=== PATIENT | female | born 2000 | race Caucasian/White ===

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

== ENCOUNTER 2022-05-21 10:46 | Emergency (ER) | payer OTHER, SELFPAY ==
[2022-05-21 10:47] VITALS: BP 138/77; PULSE 80; RESP 16; TEMP 36.6; O2SAT 98; BMI 20.9
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
--- NOTE | 2022-05-21 11:16 | NURSING ---
NO OLD EKGS
[2022-05-21 11:30] VITALS: PULSE 77; RESP 16
[2022-05-21 11:39] LABS: Absolute Neutrophil Count 7.5 X10^3/uL (2.0-7.7); Basophil# 0.02 X10^3/uL; Basophil% 0.2 % (0-1); Eosinophil# 0.24 X10^3/uL; Eosinophils% 2.3 % (0-5); Hemoglobin 12.9 g/dL (12.0-15.0); Lymphocyte % 19.7 % (19-41); Mean Corp Hgb Conc 32.3 g/dL (32-36); Mean Corpuscular Hgb 28.4 pg (27.0-32.0); Mean Corpuscular Volume 87.9 fL (81-99); Mean Platelet Vol. 9.2 fl (6.2-12.0); Monocyte# 0.76 X10^3/uL; Monocyte% 7.1 % (0-10); NRBC Flagged by Analyzer 0 % (0-5); Neutrophil % 70.3 % (47-70); Platelet Count 271 K/mm3 (150-450); RBC Distribution Width CV 12.1 % (11.6-14.6); RBC Distribution Width SD 39.1 fl (35.1-43.9); Red Blood Count 4.55 M/mm3 (4.2-5.4); White Blood Count 10.7 K/mm3 (4.4-11.0)
[2022-05-21 11:52] LABS: Internal QC Validated? YES +Cl - CLEAR BKGD; Pregnancy, Serum, hCG Quali. NEGATIVE Negative
[2022-05-21 11:55] LABS: AST(SGOT) 16 U/L (15-37); Alanine Aminotransfer ALT/SGPT 25 U/L (13-56); Albumin, Serum 3.5 g/dL (3.2-5.0); Alkaline Phosphatase 75 U/L (45-117); Anion Gap 7 (5-15); BUN 11 mg/dL (7-18); BUN/Creat Ratio 16.6 RATIO (10-20); Bilirubin, Direct < 0.05 mg/dL (0.00-0.30); Chloride 104 mmol/L (98-107); Creatinine, Serum 0.66 mg/dL (0.55-1.02); EST Glomerular Filtration Rate 118 mL/min (>60); Est Glom Filt Rate - Afr Amer 143 mL/min (>60); Estimated Creatinine Clearance 124.46 ml/min; Globulin 4.1 g/dL (2.2-4.2); Glucose 112 mg/dL (74-106); Potassium 3.6 mmol/L (3.5-5.1); Protein, Total 7.6 g/dL (6.4-8.2); Sodium Level 138 mmol/L (136-145)
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
[2022-05-21 12:26] LABS: Bacteria 0 SEEN /hpf (None Seen); Mucous, Urine 0 SEEN /hpf (<or=2+); Red Blood Cells-Urine 0 SEEN /hpf (0-5); White Blood Cells 0 SEEN /hpf (0-5)
[2022-05-21 12:27] LABS: Color, Urine Yellow (Yellow); Glucose, Dipstick Normal (Normal); Nitrite-Dipstick Negative (Negative); Occult Blood-Urine Negative /ul (Negative); Protein-Dipstick Negative (Negative); Specific Gravity, Urine 1.015 (1.002-1.030); Urine Bilirubin Dipstick Negative (Negative); Urine Clarity Clear (Clear); Urine Urobilinogen Normal (Normal); Urine pH 6.5 (5.0 - 8.0)
[2022-05-21 12:36] LABS: Ketone-Dipstick 5 mg/dl (Negative); Leukocyte Esterase-Dipstick Negative /ul (Negative)
[2022-05-21 12:45] LABS: Squamous Epithelial Cells - UA 5-10 SEEN /hpf (5-10)
[2022-05-21 12:48] VITALS: PULSE 70; RESP 16; O2SAT 99
== END 2022-05-21 12:48 | disposition home or self-care (01) ==
PROVIDERS: Emergency Provider Emergency Medicine; Visit Provider Emergency Medicine
DX: S70.311A Abrasion, right thigh, initial encounter (principal); R10.2 Pelvic and perineal pain; R10.813 Right lower quadrant abdominal tenderness; Y92.410 Unspecified street and highway as the place of occurrence of the external cause; V49.40XA Driver injured in collision with unspecified motor vehicles in traffic accident, initial encounter; F95.2 Tourette's disorder
CPT/HCPCS: 74177; 80048; 80076; 81001; 84703; 85025; 93005; 99283; Q9967; A4216

== ENCOUNTER 2022-06-12 09:13 | Emergency (ER) | payer OTHER, SELFPAY ==
[2022-06-12 09:14] VITALS: BP 147/95; PULSE 80; RESP 17; TEMP 36.2; O2SAT 97
--- NOTE | 2022-06-12 09:41 | EX.ED.DYSGE1 ---
HPI History of Present Illness Chief Complaint: Flank Pain Detail of Chief Complaint: Left flank pain that started yesterday Informant: patient Narrative Narrative: Patient presents to the emergency department complaint of left flank pain that started yesterday. Patient states the pain became more severe today. Patient initially thought she was constipated so she had a bowel movement this morning but did not relieve the pain. Patient denies dysuria. She denies frequency. She denies hematuria. She is never had pain like this before. Patient denies any fevers. Her last menstrual period was a week and a half ago. She is never had pain like this before. Patient states currently pain is a 7 out of 10. Patient has had nausea but no vomiting. Prior similar symptoms: No PFSH PFSH Medical History Anxiety Depression Tourette's disorder Home Medications polyethylene glycol 3350 17 gram oral powder packet 17 g PO DAILY #30 packets 09/30/18 [Rx Last Taken Unknown] sulfamethoxazole 800 mg-trimethoprim 160 mg tablet 1 tab PO BID 09/30/18 [History Last Taken Unknown] hydrocodone-acetaminophen 5-325mg 5mg-325mg 1 tab PO Q4H PRN PRN Pain 3 days #14 TABLETS 06/12/22 [Rx Last Taken Unknown] naproxen 500 mg tablet 500 mg PO BID #14 tabs 06/12/22 [Rx Last Taken Unknown] sulfamethoxazole 800 mg-trimethoprim 160 mg tablet 1 tab PO BID #6 TABLETS 06/12/22 [Rx Last Taken Unknown] Allergy/AdvReac Type Severity Reaction Status Date / Time No Known Allergies Allergy Verified 09/30/18 19:16 Social History (Updated 05/21/22 @ 12:[address] Issac Varma MD) household members: family Smoking Status: Never smoker alcohol intake: current alcohol intake frequency: holidays/special occasions only substance use type: does not use ROS ROS ED Review of Systems ROS Unobtainable: other Constitutional Constitutional ED: Reports lethargy; Denies chills, fever(s), sweats or weight loss Eyes Eyes: Denies blurry vision, change in vision or diplopia ENT ENT ED: Denies rhinorrhea or sore throat Cardiovascular Cardiovascular: Reports racing heartbeat; Denies chest pain, orthopnea or palpitations Respiratory/Chest Respiratory/Chest: Denies cough, dyspnea, dyspnea on exertion, orthopnea or sputum Gastrointestinal Gastrointestinal: Reports abdominal pain and nausea; Denies diarrhea or vomiting Genitourinary Genitourinary ED: Denies dysuria, hematuria or urinary frequency Musculoskeletal Musculoskeletal: Reports back pain; Denies arthralgias, myalgias or neck pain Integumentary Denies abscess, Abrasions or rash Neurologic Neurologic: Denies headache(s) or weakness Psychiatric Psychiatric: Denies anxiety, depression or suicidal thoughts Endocrine Endocrinology: Denies polydipsia, polyphagia or polyuria Hematologic/Lymphatic Hematologic/Lymphatic: Denies easy bleeding, easy bruising or lymphadenopathy Allergic/Immunologic Allergic/Immunologic ED: Denies mouth swelling, tongue swelling or urticaria EXAM Physical Exam Const Vital Signs: 06/12/22 09:14 Temperature 97.2 F L Temperature Source Temporal Pulse Rate 80 Respiratory Rate 17 Blood Pressure 147/95 H Blood Pressure Mean 112 Pulse Ox 97 Oxygen Delivery Method Room Air Positive well nourished and well developed General Appearance ED: well developed and NAD HEENT Reports TM's clear and moist mucous membranes normocephalic and atraumatic; Negative for trauma or tenderness Tympanic Membrane ED: Yes TM's clear Eyes PERRL and EOMs intact bilaterally General Eye ED: Negative for pale conjunctiva or scleral icterus Neck no lymphadenopathy, supple and no JVD General: Negative for tenderness Chest Wall inspection of chest normal and palpation of chest normal Chest: Negative for tenderness Resp normal respiratory effort and clear to auscultation bilaterally Effort and Inspection: Negative for respiratory distress or pain with movement Auscultation: Negative for rhonchi, wheezes or diminished lung sounds Cardio regular rate, regular rhythm, S1 normal heart sound, S2 normal heart sound and no murmurs Peripheral Pulses: pulses 2+ throughout GI normal to inspection, nondistended, normoactive bowel sounds, soft to palpation, non-distended and no masses GI Narrative: Tender to palpation over the suprapubic region as well as the left lower quadrant some mild guarding. There is no rebound, rigidity, or peritoneal signs. Back/Spine no thoracic nor lumbar tenderness Back/Spine Narrative: Tenderness over the left CVA Extremity normal to inspection General Extremety ED: Negative for edema General Extremity: Negative for edema Neuro oriented x3, CN's II-XII intact bilaterally, no sensory deficits noted and gait normal Sensorium / Orientation: awake, alert, oriented to person, oriented to place and oriented to time Motor Exam: strength 5/5 throughout and strength abnormal Psych mental status grossly normal Skin no rashes or lesions noted and no wounds MDM MDM MDM Narrative Medical decision making narrative: Established on arrival. Patient was medicated with morphine and Toradol and Zofran. Initially she refused the Toradol but states that the pain started come back a little bit so she would not want to Toradol. Patient lab work-up was normal. hCG was negative. Urinalysis did show some signs of infection with white cells as well as bacteria and positive nitrites. On CT she is noted to have a 2.5 mm stone near the left UVJ with hydro-. At this point patient will be started on Bactrim and given a prescription for Naprosyn and [place]. She is given urine strainers. She is given referral to urology. Based on the size of the stone I feel she should likely be able to pass this. Patient advised return if worsening pain, fever, vomiting, or condition should worsen anyway. Lab Data Attestation: I reviewed the patient's lab results. Labs: Laboratory Results - last 24 hr 06/12/22 06/12/22 06/12/22 09:27 09:27 09:27 WBC 8.4 RBC 4.88 Hgb 13.8 Hct 42.2 MCV 86.5 MCH 28.3 MCHC 32.7 RDW Std Deviation 38.2 RDW Coeff of [place] 12.1 Plt Count 342 MPV 9.3 Immature Gran % (Auto) 0.200 Neut % (Auto) 64.9 Lymph % (Auto) 24.4 [place] % (Auto) 7.0 Eos % (Auto) 3.1 Baso % (Auto) 0.4 Absolute Neuts (auto) 5.4 Absolute Lymphs (auto) 2.04 Nucleated RBC % 0 Sodium 140 Potassium 3.6 Chloride 107 Carbon Dioxide 27.0 Anion Gap 6 BUN 14 Creatinine 0.79 Estim Creat Clear Calc 4.30 Est GFR (MDRD) Af Amer 116 Est GFR (MDRD) Non-Af 96 BUN/Creatinine Ratio 17.7 Glucose 107 H Calcium 9.3 Serum , Qual NEGATIVE Urine Color Urine Clarity Urine pH Ur Specific [place] Urine Protein Urine Glucose (UA) Urine Ketones Urine Occult Blood Urine Nitrite Urine Bilirubin Urine Urobilinogen Ur Leukocyte Esterase Urine RBC Urine WBC Ur Squamous Epith Cells Urine Bacteria Urine Mucus 06/12/22 10:00 WBC RBC Hgb Hct MCV MCH MCHC RDW Std Deviation RDW Coeff of [place] Plt Count MPV Immature Gran % (Auto) Neut % (Auto) Lymph % (Auto) [place] % (Auto) Eos % (Auto) Baso % (Auto) Absolute Neuts (auto) Absolute Lymphs (auto) Nucleated RBC % Sodium Potassium Chloride Carbon Dioxide Anion Gap BUN Creatinine Estim Creat Clear Calc Est GFR (MDRD) Af Amer Est GFR (MDRD) Non-Af BUN/Creatinine Ratio Glucose Calcium Serum , Qual Urine Color Yellow Urine Clarity Clear Urine pH 8.0 Ur Specific [place] 1.010 Urine Protein 15 H Urine Glucose (UA) Normal Urine Ketones Negative Urine Occult Blood 250 H Urine Nitrite Positive H Urine Bilirubin Negative Urine Urobilinogen Normal Ur Leukocyte Esterase 100 H Urine RBC 25-50 SEEN Urine WBC 10-25 SEEN Ur Squamous Epith Cells 5-10 SEEN Urine Bacteria 1+ Urine Mucus 0 SEEN Radiography Diagnostic Testing: Clinical Impression(s) from Imaging Studies Abdomen/Pelvis CT 06/12/22 10:13 IMPRESSION: 2.5 mm calculus in the distal portion of the left ureter just proximal to the ureterovesical junction causing mild left hydronephrosis and left hydroureter. Electronically Signed: John Hayes MD at 10:55 EDT Reading Location ID and State: [facility] / [place] , Service support , Discharge Plan Triage Chief Complaint: Flank Pain ED Provider: Saurabh Saldana Dx/Rx/DC Orders Clinical Impression: Urolithiasis, UTI (urinary tract infection) Instructions: ED Cystitis Female Adult, ED Kidney Stone w/ Colic Prescriptions: New hydrocodone-acetaminophen [hydrocodone-acetaminophen] 5-325 mg tablet 1 tab PO Q4H PRN PRN (Reason: Pain) 3 Days Qty: 14 0RF sulfamethoxazole-trimethoprim [sulfamethoxazole-trimethoprim] 800-160 mg tablet 1 tab PO BID Qty: 6 0RF naproxen 500 mg tablet 500 mg PO BID Qty: 14 0RF No Action sulfamethoxazole-trimethoprim 1 TABLET tablet 1 tab PO BID polyethylene glycol 3350 17 GM powder in packet 17 g PO DAILY Qty: 30 0RF Primary Care Provider: RICKEY ARMAS Referrals: Sagar Hermosillo MD [Med Staff - Active Staff] - 3-5 Days [facility] Doctor,Out of [Non-Staff] - Disposition Disposition: Home, Self Care
[2022-06-12] MEDS: HYDROmorphone 1 MG/ML Syringe IV (09:53)
[2022-06-12] MEDS: Ondansetron 4 MG/2 ML Vial IV (09:53)
[2022-06-12] MEDS: 0.9% Normal Saline 1,000 ML 125 ML IV (09:54)
[2022-06-12 10:00] LABS: Absolute Lymphocyte Count 2.04 X10^3/uL (0.83-4.51); Absolute Neutrophil Count 5.4 X10^3/uL (2.0-7.7); Basophil# 0.03 X10^3/uL; Basophil% 0.4 % (0-1); Eosinophil# 0.26 X10^3/uL; Eosinophils% 3.1 % (0-5); Hematocrit 42.2 % (37-47); Hemoglobin 13.8 g/dL (12.0-15.0); Lymphocyte # 2.04 X10^3/ul (0.83-4.51); Lymphocyte % 24.4 % (19-41); Mean Corp Hgb Conc 32.7 g/dL (32-36); Mean Corpuscular Hgb 28.3 pg (27.0-32.0); Mean Corpuscular Volume 86.5 fL (81-99); Mean Platelet Vol. 9.3 fl (6.2-12.0); Monocyte# 0.59 X10^3/uL; NRBC Flagged by Analyzer 0 % (0-5); Neutrophil # 5.43 X10^3/uL (2.7-7.7); Neutrophil % 64.9 % (47-70); Platelet Count 342 K/mm3 (150-450); RBC Distribution Width CV 12.1 % (11.6-14.6); RBC Distribution Width SD 38.2 fl (35.1-43.9); Red Blood Count 4.88 M/mm3 (4.2-5.4); White Blood Count 8.4 K/mm3 (4.4-11.0)
[2022-06-12 10:03] LABS: Internal QC Validated? YES +Cl - CLEAR BKGD; Pregnancy, Serum, hCG Quali. NEGATIVE Negative
[2022-06-12 10:06] LABS: Anion Gap 6 (5-15); BUN 14 mg/dL (7-18); BUN/Creat Ratio 17.7 RATIO (10-20); Calcium,Total 9.3 mg/dL (8.5-10.1); Chloride 107 mmol/L (98-107); Creatinine, Serum 0.79 mg/dL (0.55-1.02); EST Glomerular Filtration Rate 96 mL/min (>60); Est Glom Filt Rate - Afr Amer 116 mL/min (>60); Glucose 107 mg/dL (74-106); Potassium 3.6 mmol/L (3.5-5.1); Sodium Level 140 mmol/L (136-145)
[2022-06-12 10:08] LABS: Mucous, Urine 0 SEEN /hpf (<or=2+)
--- NOTE | 2022-06-12 10:13 | CT_ITS ---
STUDY: CT ABDOMEN AND PELVIS WITHOUT CONTRAST REASON FOR EXAM: Female, 21 years old. Left flank pain. RADIATION DOSAGE (If Supplied By Facility): CTDIvol = ( 6.52 ) mGy, DLP = ( 333.93 ) mGycm TECHNIQUE: Transaxial images were obtained from the dome of the diaphragm to the symphysis pubis without oral contrast, and without intravenous contrast. Sagittal and coronal images were reconstructed. Individualized dose optimization techniques were used for this CT. COMPARISON: Comparison is made with prior study 05/21/2022. FINDINGS: The visualized lung bases are unremarkable. The visualized portions of the heart are within normal limits. Normal liver. Normal gallbladder and extrahepatic biliary system. Normal spleen. Normal pancreas. Normal bilateral adrenal glands. Normal right kidney. Mild degree of left hydronephrosis and hydroureter due to a 2.5 mm calculus in the distal portion of the left ureter just proximal to the ureterovesical junction. Normal visualized stomach. Normal small intestine. Large amount of fecal material is seen in the colon. The appendix is visualized and appears normal. Normal abdominal aorta. Normal inferior vena cava. Normal retroperitoneum. Normal urinary bladder. Normal abdominal wall. Normal osseous structures. CT/Abdomen/Pelvis without Cont IMPRESSION: 2.5 mm calculus in the distal portion of the left ureter just proximal to the ureterovesical junction causing mild left hydronephrosis and left hydroureter. Electronically Signed: John Hayes MD at 10:55 EDT ,
[2022-06-12 10:16] LABS: Color, Urine Yellow (Yellow); Glucose, Dipstick Normal (Normal); Ketone-Dipstick Negative (Negative); Leukocyte Esterase-Dipstick 100 /ul (Negative); Nitrite-Dipstick Positive (Negative); Occult Blood-Urine 250 /ul (Negative); Protein-Dipstick 15 mg/dl (Negative); Urine Bilirubin Dipstick Negative (Negative); Urine Clarity Clear (Clear); Urine Urobilinogen Normal (Normal)
[2022-06-12 10:36] LABS: Bacteria 1+ /hpf (None Seen); Red Blood Cells-Urine 25-50 SEEN /hpf (0-5); Squamous Epithelial Cells - UA 5-10 SEEN /hpf (5-10); White Blood Cells 10-25 SEEN /hpf (0-5)
[2022-06-12] MEDS: Ketorolac 30 MG/ML Syringe IV (11:15)
[2022-06-12] MEDS: Smz/Tmp Ds Tablet 1 TABLET PO (11:26)
== END 2022-06-12 11:34 | disposition home or self-care (01) ==
PROVIDERS: Emergency Provider Emergency Medicine; Visit Provider Emergency Medicine
DX: N13.6 Pyonephrosis (principal); F95.2 Tourette's disorder
CPT/HCPCS: 74176; 80048; 81001; 84703; 85025; 96361; 96374; 96375; 99283; J7030; A4216; J2405